=== PATIENT | female | born 1980 | race Two or more races ===

== ENCOUNTER 2024-11-12 05:40 | Day surgery (SDC) | payer MEDICAID, SELFPAY ==
--- NOTE | 2024-11-09 11:09 | ESHP_ITS ---
RE: GRACIE CASTANON : 1980 DATE OF ADMISSION: 11/12/2024 DATE OF SURGERY: 11/12/2024 HISTORY OF PRESENT ILLNESS: This is a 44-year-old 4, para 3 with abnormal uterine bleeding who presents for endometrial ablation. ALLERGIES: NO KNOWN DRUG ALLERGIES. MEDICATIONS: 1. Amlodipine 2.5 mg one p.o. daily. 2. Lisinopril 2.5 mg one p.o. daily. 3. Atorvastatin 10 mg one p.o. daily. 4. Ozempic 0.25 mg subcutaneously weekly. PAST MEDICAL HISTORY: Hypertension, hyperlipidemia, iron deficiency anemia. PAST SURGICAL HISTORY: Dilatation and curettage. SOCIAL HISTORY: She denies any alcohol, drug use, or smoking. FAMILY HISTORY: Denies. OBSTETRIC HISTORY: Three previous full-term normal vaginal deliveries. REVIEW OF SYSTEMS: She denies any chest pain, palpitations, cough, fever, shortness of breath or lower extremity pain. PHYSICAL EXAMINATION: VITAL SIGNS: Blood pressure 164/88, heart rate 88, respirations 18, temperature 98.2. HEENT: Oropharynx and sclerae are clear. LUNGS: Clear to auscultation bilaterally. HEART: Regular rate and rhythm. ABDOMEN: Nontender. EXTREMITIES: Nontender. SKIN: No gross rashes or lesions. NEUROLOGIC: No focal deficit. ASSESSMENT AND PLAN: Abnormal uterine bleeding. PLAN: Hysteroscopy, fractional dilatation and curettage, and NovaSure endometrial ablation. Informed consent was obtained. The patient was made aware of the risks, complications, alternatives, and benefits of the proposed procedure. She is aware of the risk of injury to bowel or bladder, adjacent organs, pulmonary embolism, deep vein thrombosis, pelvic infection, reoperation to repair injury to internal organs, anesthesia complications, the possibility that a laparotomy needs to be performed to repair organs or control bleeding and the possibility the procedure is not able to be completed due to severe adhesions or technical difficulties. She verbalized understanding and agrees to proceed with the procedure with an understanding of the risks and complications. DT: 08:31:45 TT: 11:07:00 Ref: [id number] - TID: [id number] MTDD
--- NOTE | 2024-11-11 07:00 | EKG_ITS ---
[facility] Test Date: 2024-11-11 Pat Name: GRACIE CASTANON Department: Room: - Gender: Female [employer]: INGA : 1980 Requested By: Felix Cardona Order Number: [id number] Reading MD: Felix Cardona Measurements Intervals [place] Rate: 78 P: 49 [place]: 167 QRS: 7 QRSD: 90 T: 47 QT: 372 QTc: 424 Interpretive Statements SINUS RHYTHM Compared to ECG 09/26/2017 12:26:38 No significant changes /store/S0/[id number].pdf
[2024-11-11 11:19] VITALS: BMI 38.3
[2024-11-11 12:16] LABS: Basophils # (Auto) 0.1 Thou/mm3 (0.0-0.2); Basophils % (Auto) 1 % (0-2.5); Eosinophils # (Auto) 0.1 Thou/mm3 (0.0-0.5); Eosinophils % (Auto) 1 % (0-10); Hematocrit 31.7 % (36.0-46.0); Hemoglobin 9.5 g/dL (12.0-16.0); Immature Granulocytes Auto 0.03 Thou/mm3 (0.00-0.00); Lymphocytes # (Auto) 3.0 Thou/mm3 (1.0-4.8); Lymphocytes % (Auto) 33 % (10-50); Mean Corpuscular HGB Conc 30.0 g/dl (31.0-37.0); Mean Corpuscular Hemoglobin 21.7 pg (25.0-35.0); Mean Corpuscular Volume 73 fL (80-100); Monocytes # (Auto) 0.5 Thou/mm3 (0.0-0.8); Monocytes % (Auto) 6 % (0-12); Neutrophils # (Auto) 5.3 Thou/mm3 (1.8-7.7); Neutrophils % (Auto) 59 % (37-80); Nucleated Red Blood Cell # 0.00 Thou/mm3 (0.00-0.00); Nucleated Red Blood Cell % 0 /100 WBC (0); Platelet Count 346 Thou/mm3 (140-440); RDW Standard Deviation 50.7 fL (36.4-46.3); Red Blood Count 4.37 Miln/mm3 (4.00-5.20); White Blood Count 8.8 Thou/mm3 (3.6-11.0)
[2024-11-11 12:25] LABS: INR 1.0 (0.9-1.3); Partial Thromboplastin Time 23.8 Seconds (22.0-36.0); Prothrombin Time 10.9 Seconds (9.0-12.2)
[2024-11-11 12:28] LABS: Alanine Aminotransferase < 7 U/L (10-49); Albumin, Serum 4.1 gm/dL (3.5-5.0); Albumin/Globulin Ratio 1.5 (1.2-2.2); Alkaline Phosphatase 83 U/L (46-116); Anion Gap 9 (7-16); Aspartate Amino Transferase 16 U/L (0-34); BUN/Creatinine Ratio 13 Ratio (12-20); Beta HCG,Quantitative < 1 mIU/mL (<5.0); Bilirubin,Total 0.3 mg/dL (0.3-1.2); Blood Urea Nitrogen 9 mg/dL (9-23); Calcium 9.3 mg/dL (8.3-10.6); Calcium (Corrected) 9.3 mg/dL (8.5-10.1); Carbon Dioxide 27.9 mMol/L (20.0-31.0); Chloride 104 mMol/L (98-107); Creatinine (Component) 0.7 mg/dL (0.6-1.3); Estimated Creatinine Clearance 114.5 mL/min (>60); Globulin 2.8 gm/dL (2.3-3.5); Glucose 131 mg/dL (74-106); Osmolality,Calculated 281 (275-295); Potassium 4.2 mMol/L (3.4-5.1); Sodium 141 mMol/L (136-145); Total Protein 6.9 gm/dL (5.7-8.2); eGFR > 60 See Note
[2024-11-12] VITALS (7 sets, daily range): BP systolic 107–137; BP diastolic 71–105; PULSE 67–88; RESP 17–20; TEMP 36.4–36.7; O2SAT 96–99; BMI 38.3
--- NOTE | 2024-11-12 07:20 | CHAP ---
Visited with patient and prayed with the patient before the procedure.
--- NOTE | 2024-11-12 08:15 | SUR.PHASEI ---
0815 Patient arrived to recovery resting comfortably in [facility], on oxygen 6L via oxy mask with an oral airway in place, breathing unlabored, vital signs stable, dressing intact to vaginal area; peripad, no bleeding noted, report received from Karena MORALES and Matty CAMPBELL
--- NOTE | 2024-11-12 08:15 | PD.GYNPROC ---
Operative Note - [employer] Procedure Date of procedure: 11/12/24 Procedure Performed: Hysteroscopy, fractional dilatation and curettage and NovaSure endometrial ablation Indication: Abnormal uterine bleeding Pre-Op diagnosis: Abnormal uterine bleeding Post-Op diagnosis: Abnormal uterine bleeding Anesthesia type: General Procedure description: After proper informed consent was obtained and the patient made aware of the risk complications alternatives and benefits of the proposed procedure she was taken to the operating room where she underwent induction of general anesthesia.? She was placed in the dorsal lithotomy position and prepped and draped the usual sterile fashion.? A timeout was performed.? A bivalve speculum was inserted.? A single-tooth tenaculum was used to grasp the posterior lip of the cervix.? The uterine cavity was sounded to 9.0 cm.? The cervical length measured 3.0 cm.? The cervix was dilated to accommodate the 5.5 mm Omni hysteroscope.? Using the Aquilex system and normal saline as the distending media the hysteroscopy was performed and no submucous myomas or polyps or distortions or irregularities of the uterine cavity were visualized. The endocervix was curetted with the Kevorkian curette and specimen sent to pathology.? The uterine cavity was curetted with a 5 mm curette and specimen sent to pathology.? The NovaSure catheter was plugged into the controller.? It went through its purge cycle.? The array was deployed and was found to be complete and intact with the width meter working properly. The Novasure catheter was appropriately seated in the uterine cavity.? The cavity length was 6.0 cm, ?the cavity width was 3.3 cm the power setting was 109 W.? The carbon dioxide cavity integrity assessment test was performed.? The uterine cavity was intact.? The controller was enabled and the ablation was performed for a total of 1 minute and 39 seconds before the controller shut off.? The array was retracted into the sheath and the catheter was removed from the uterine cavity.? The array was redeployed and found to be complete and intact.? There was bleeding at the anterior lip of the cervix at the site of the tenaculum and using the Bovie cautery hemostasis was achieved.? There was no bleeding at the end of the procedure.? All instruments were removed from the vagina.? She was reversed from general anesthesia in supine position and transferred to the cover room in stable condition.? She tolerated the procedure well.? Counts were correct.? I discussed with the patient's family the nature of her condition, the intraoperative findings, the expectation for recovery, all questions answered. Specimen: other (1. endocervical curettings 2. endometrial curettings) Estimated blood loss (ml): 5 Findings: Normal-appearing uterine cavity and endocervical cavity No submucous myomas or polyps No distortions or irregularities of the uterine cavity Retroverted uterus Uterus sounded to 9.0 cm, cervical length is 3.0 cm. Uterine cavity length was 6.0 cm, uterine cavity width was 3.3 cm. Power setting 109 W. duration of ablation 1 minute and 39 seconds Fluids absorbed hysteroscopically: Normal saline 80 cc Complications: none Surgical staff Ya Operation Date: 11/12/24 07:30 <No data on this case meets the specified criteria> Karena Bautista Surgeon Diagnosis Problem List Completed Was Problem List Reviewed/Reconciled?: Yes
--- NOTE | 2024-11-12 09:02 | SUR.PHASEII ---
0902 Patient meets discharge criteria from recovery, awake and alert, breathing unlabored, vital signs stable, denies pain, dressing intact; no bleeding noted, eating ice chips; denies nausea, able to dress herself into her clothing, discharge instructions given to patient and patients daughter, daughter signed discharge instructions. Patient given all her belongings prior to discharge, transported via wheelchair and left in a private vehicle.
--- NOTE | 2024-11-12 10:11 | SUR.OPER ---
ENDOMETRIAL ABLATION: CAVITY LENGTH: 6CM CAVITY WIDTH: 3.3CM POWER SETTINW DURATION: 1MINUTE 39SECONDS
== END 2024-11-12 09:02 | disposition home or self-care (01) ==
PROVIDERS: PCP Registered Nurse; Referring Provider Specialist; Visit Provider Specialist
PROC: 0U5B8ZZ Destruction of Endometrium, Via Natural or Artificial Opening Endoscopic (ICD-10-PCS; CPT 58563; principal; 2024-11-12 07:30)
DX: N93.9 Abnormal uterine and vaginal bleeding, unspecified (principal); Z01.810 Encounter for preprocedural cardiovascular examination
CPT/HCPCS: 58563; 36415; 80053; 84702; 85025; 85610; 85730; 86850; 86900; 86901; 93005; A4217; A4649; J0131; J0690; J1100; J1885; J2405; J2704; J3010; J3490